=== PATIENT | female | born 1960 ===

== ENCOUNTER 2017-11-05 09:55 | Day surgery (SDC) | payer BC ==
[2017-11-05] MEDS ORDERED: Propofol 10 mg/ml Inj (20 ML) ONE (10:31)
[2017-11-05] MEDS ORDERED: Rocuronium 10 mg/ml (5 ml) ONE (10:31)
[2017-11-05] MEDS ORDERED: ceFAZolin 1 gm FROZEN Premix 2 GM/100 ML ML IVPB ONE (10:33)
[2017-11-05] MEDS ORDERED: Lidocaine/Epinephrine 1% 1:100000 10 ML IJ ONE (10:33)
[2017-11-05] MEDS ORDERED: Midazolam 2 MG/2 ML VIAL ONE (11:03)
[2017-11-05] MEDS ORDERED: Bupivacaine HCl 0.25% PF (30 ml) Inj ONE ×2 (11:36)
--- NOTE | 2017-11-05 12:53 | PCM.SURG1 ---
Surgeon's Initial Post Op Note - Surgeon's Notes Surgeon: MD Emma Dispatcher Service Chief: MIKY WillY2. Deisy, housing assistant Pre-Operative Diagnosis: Umbilical hernia Operative Findings: Umbilical hernia Post-Operative Diagnosis: Umbilical hernia Operation Performed: Robotic repair of umbilical hernia with mesh, TAP block Specimen/Specimens Removed: preperitoneal fat Estimated Blood Loss: EBL {In ML}: 10 Date of Surgery/Procedure: 11/05/17 Time of Surgery/Procedure: 11:30
[2017-11-05] MEDS: HYDROmorphone 0.5 mg/0.5 ml ISec IVP PRN ×2 (13:25→13:54)
[2017-11-05 15:02] VITALS: BP 136/80; PULSE 83; RESP 18; TEMP 97.4; O2SAT 100
--- NOTE | 2017-11-06 00:02 | OP ---
PROCEDURE DATE: 11/05/2017 PREOPERATIVE DIAGNOSIS: Umbilical hernia. POSTOPERATIVE DIAGNOSIS: Umbilical hernia containing preperitoneal fat. PROCEDURE DONE: Robotic umbilical hernia repair with a mesh. SURGEON: Angel Carter MD ASSISTANTS: HAWK Suarez and Leo Will DO, PGY-2 resident. ANESTHESIA: General endotracheal tube anesthesia. ESTIMATED BLOOD LOSS: Around 10 mL. DRAINS: None. PATHOLOGY: Hernial sac and content was sent to the Pathology. COMPLICATIONS: None. INTRAOPERATIVE FINDINGS: The patient had umbilical hernia of approximately 2 x 2 cm size. DESCRIPTION OF THE PROCEDURE: On intraoperative steps, this 57-year-old female was diagnosed with umbilical hernia, and the patient was consented for the robotic umbilical hernia repair with a mesh, brought to the OR, placed supine on the operating table. After induction of the anesthesia, the abdomen was prepped and draped in the usual sterile fashion. A left upper quadrant incision was made after incising skin, subcutaneous tissue and the fascia. Using the Visiport technique, peritoneal cavity was entered, pneumo was created. Another two 8-mm ports were placed in the left flank and left upper quadrants. Robot was brought in. Camera arm as well as arm 1 and arm 2 were docked, and grasper and hook were introduced. Hernial sac and contents were reduced back in the peritoneal cavity. The defect was closed with a #1 looped PDS in 2 layers, and a 7-cm circular mesh was introduced and mesh was implanted. After proper implantation of the mesh, the bilateral TAP block was given. The second procedure is a laparoscopic bilateral TAP block placement. After proper TAP block and after proper hemostasis, the specimen was taken out and it was sent off the table for pathology. All the port sites were closed in 2 layers, subcu with a 2-0 Vicryl and skin with a 4-0 Monocryl, and dry sterile dressing was applied. The patient tolerated the procedure well. Count of instrument and gauze was correct. There was no apparent complication. Angel Carter MD
== END 2017-11-05 16:45 | disposition home or self-care (01) ==
LOC: C.SDS 09:55
PROVIDERS: ATTEND Surgery Surgical Critical Care
DX: K42.9 Umbilical hernia without obstruction or gangrene (principal)
CPT/HCPCS: 49652; 88302; C1781; J0690; J1170; J1885; J2001; J2250; J2405; J2704; J3010